=== PATIENT | male | born 1955 | race Caucasian/White ===

== ENCOUNTER → 2023-02-12 | Outpatient (CLI) | payer MEDICARE ==
[2023-02-12 14:07] LABS: Microalb/Creat Ratio UR, Rand 5.7 mg/g (0.000-30.000); Microalbumin, Random Urine 11.8 mg/L (0.000-20.000)
== END | disposition home or self-care (01) ==
LOC: LAB 07:52 → LAB SHORT 07:52
PROVIDERS: Physician Assistant
DX: E11.9 Type 2 diabetes mellitus without complications (principal)
CPT/HCPCS: 82043; 82570